=== PATIENT | male | born 1975 | race African-American/Black ===

== ENCOUNTER 2024-01-24 11:06 | Emergency (ER) | payer OTHER ==
[~2024-01-24] VITALS: Ht 175.3 cm; Wt 84.1 kg
[2024-01-24 11:20] VITALS: BP 141/88; PULSE 62; RESP 18; TEMP 98.2; O2SAT 99
[2024-01-24] MEDS ORDERED: ACET-3385 PO (14:50)
[2024-01-24] MEDS ORDERED: LIDO700A15 TP (14:50)
[2024-01-24] MEDS ORDERED: IBUP-1492 PO (14:50)
[2024-01-24] MEDS: ACETAMINOPHEN 500 MG TABLET PO ONE (14:52)
[2024-01-24] MEDS: LIDOCAINE 5% TRANSDERMAL PATCH TD ONE (14:52)
[2024-01-24] MEDS: IBUPROFEN 600 MG TABLET PO ONE (14:52)
== END 2024-01-24 15:02 | disposition home or self-care (01) ==
LOC: EMS 11:06
DX: S39.012A Strain of muscle, fascia and tendon of lower back, initial encounter (principal); V89.2XXA Person injured in unspecified motor-vehicle accident, traffic, initial encounter; Y93.89 Activity, other specified; Y92.89 Other specified places as the place of occurrence of the external cause; Y99.8 Other external cause status
CPT/HCPCS: 99284; Z7502; Z7610

== ENCOUNTER 2024-01-31 08:52 | Emergency (ER) | payer OTHER ==
[~2024-01-31] VITALS: Ht 180.3 cm; Wt 84.1 kg
[~2024-01-31 08:52] MED LIST: ACET-3385 PO; IBUP-1492 PO; LIDO700A15 TP
[2024-01-31 09:32] VITALS: TEMP 97.4
[2024-01-31] MEDS: KETOROLAC TROMETHAMINE 30 MG/ML VIAL IVP ONE (14:28)
[2024-01-31] MEDS: ACETAMINOPHEN 500 MG TABLET PO ONE (14:28)
[2024-01-31] MEDS ORDERED: SODIUM CHLORIDE 0.9% 100 ML ONE (14:32)
[2024-01-31] MEDS ORDERED: IOHEXOL 350 MG/ML 100 ML VIAL ONE (14:32)
[2024-01-31 14:50] LABS: BASOPHILS % (AUTO) 0.9 % (0.0-2.0); HEMOGLOBIN 14.4 g/dL (13.5-17.5); LYMPHOCYTES # (AUTO) 1.7 K/uL (1.0-4.8); LYMPHOCYTES % (AUTO) 32.6 % (22.0-44.0); MEAN CORPUSCULAR HEMOGLOBIN 28.5 pg (26.0-34.0); MEAN CORPUSCULAR HGB CONC 32.7 G/dL (31.0-37.0); MEAN CORPUSCULAR VOLUME 87 fL (80-100); MONOCYTES # (AUTO) 0.5 K/uL (0.1-1.0); MONOCYTES % (AUTO) 9.3 % (2.0-9.0); NEUTROPHILS # (AUTO) 2.9 K/uL (1.8-7.7); NEUTROPHILS % (AUTO) 55.2 % (40.0-70.0); PLATELET COUNT (AUTO) 222 K/uL (150-450); RED BLOOD CELL COUNT(AUTO) 5.06 MIL/uL (4.50-5.90); RED CELL DISTRIBUTION WIDTH 14.6 % (11.5-14.5); WHITE BLOOD COUNT (AUTO) 5.3 K/uL (4.5-11.0)
[2024-01-31 15:03] LABS: ANION GAP 6 mmol/L (8-16); CALCIUM, TOTAL 9.6 mg/dL (8.8-10.5); CARBON DIOXIDE 29 mmol/L (22-29); CHLORIDE 104 mmol/L (98-107); CREATININE 1.19 mg/dL (0.60-1.30); GLOMERULAR FILTR. RATE CALC > 60 mL/min (>60); GLUCOSE,RANDOM 97 mg/dL (70-110); SODIUM SERUM 139 mmol/L (136-145); UREA NITROGEN, BLOOD 10 mg/dL (7-18)
[2024-01-31 15:08] LABS: ALANINE AMINOTRANSFERASE 30 U/L (12-78); ALBUMIN 3.9 g/dL (3.4-5.0); ALKALINE PHOSPHATASE 39 U/L (46-116); ASPARTATE AMINOTRANSFERASE 15 U/L (15-37); BILIRUBIN,TOTAL 1.2 mg/dL (0.1-1.0); TOTAL PROTEIN, SERUM 7.6 g/dL (6.4-8.2)
[2024-01-31] MEDS: SODIUM CHLORIDE 0.9% 1,000 ML IV ONE (16:44)
[2024-01-31 18:55] VITALS: BP 142/92; PULSE 68; RESP 18; O2SAT 99
== END 2024-01-31 21:10 | disposition home or self-care (01) ==
LOC: EMS 08:55
DX: S39.012A Strain of muscle, fascia and tendon of lower back, initial encounter (principal); X58.XXXA Exposure to other specified factors, initial encounter; Y93.89 Activity, other specified; Y92.89 Other specified places as the place of occurrence of the external cause; Y99.8 Other external cause status
CPT/HCPCS: 99285; 70450; 96374; 96361; 80053; 85025; 36415; 71260; 72131; 74177; Q9967; J1885; J7030; J7050; 72193; 74160